=== PATIENT | female | born 1985 | race African-American/Black ===

== ENCOUNTER 2018-03-16 01:46 | Emergency (ER) | payer MEDICAID ==
[~2018-03-16] VITALS: Ht 170.2 cm; Wt 69.0 kg
[~2018-03-16 01:46] MED LIST: PREN-88 PO
[2018-03-16 06:14] LABS: BASOPHILS % 0.8 % (0.0-2.0); EOSINOPHILS % 1.6 % (0.0-5.0); HEMOGLOBIN. 13.5 g/dL (12.0-16.0); MEAN CORPUSCULAR HEMOGLOBIN 30.6 pg (28.0-32.0); MEAN CORPUSCULAR VOLUME 90.7 fL (81.0-99.0); MEAN PLATELET VOLUME 8.4 fl (7.4-10.4); MONOCYTES % 7.5 % (2.0-8.0); NEUTROPHILS % 30.1 % (40.0-76.0); PLATELET 206 x1000/uL (130-400); RED BLOOD CELL COUNT 4.41 mill/uL (4.2-5.4); RED CELL DISTRIBUTION WIDTH 13.3 % (11.6-14.6)
[2018-03-16 06:19] LABS: CHLORIDE 109 mEq/L (98-107); INR 1.1
[2018-03-16 06:23] LABS: HCG SCREEN NEGATIVE
[2018-03-16 07:25] LABS: CLARITY URINE CLEAR (CLEAR); COLOR URINE YELLOW (YELLOW); KETONES URINE NEGATIVE (NEGATIVE); LEUKOCYTE ESTERASE URINE 1+ (NEGATIVE); NITRITE URINE NEGATIVE (NEGATIVE); OCCULT BLOOD URINE TRACE (NEGATIVE); PROTEIN URINE NEGATIVE (NEGATIVE); SPECIFIC GRAVITY URINE 1.012 (1.005-1.030); UROBILINOGEN URINE 0.2 E.U./dL (0.2-1.0)
[2018-03-16] MEDS ORDERED: IBUPROFEN 600MG TABLET PO ONE (08:00)
[2018-03-16 09:02] VITALS: BP 102/67
== END 2018-03-16 09:07 | disposition home or self-care (01) ==
LOC: ER 01:49
DX: N39.0 Urinary tract infection, site not specified (principal); R10.2 Pelvic and perineal pain; F12.10 Cannabis abuse, uncomplicated; F15.10 Other stimulant abuse, uncomplicated
CPT/HCPCS: 36415; 80053; 81003; 83690; 84703; 85025; 85610; 99284; Z7610

== ENCOUNTER 2019-12-24 19:01 | Emergency (ER) | payer MEDICAID ==
[~2019-12-24] VITALS: Ht 170.2 cm; Wt 75.0 kg
[2019-12-24] MEDS ORDERED: MORPHINE SULFATE 4 MG/ML CPJ (NOT FOR IM USE) IV ONE (21:00)
[2019-12-24] MEDS ORDERED: DEXAMETHASONE 4MG TABLET PO ONE (21:00)
[2019-12-24 21:51] LABS: CLARITY URINE CLOUDY (CLEAR); COLOR URINE YELLOW (YELLOW); KETONES URINE 3+ (NEGATIVE); LEUKOCYTE ESTERASE URINE TRACE (NEGATIVE); NITRITE URINE NEGATIVE (NEGATIVE); OCCULT BLOOD URINE NEGATIVE (NEGATIVE); PROTEIN URINE 1+ (NEGATIVE); SPECIFIC GRAVITY URINE 1.018 (1.005-1.030); UROBILINOGEN URINE 0.2 E.U./dL (0.2-1.0)
[2019-12-24] MEDS ORDERED: KETOROLAC 30MG/ML VIAL IV ONE (23:15)
[2019-12-25 01:15] VITALS: BP 122/70
== END 2019-12-25 01:56 | disposition home or self-care (01) ==
LOC: ER 19:01
DX: J02.9 Acute pharyngitis, unspecified (principal); F12.10 Cannabis abuse, uncomplicated; F15.10 Other stimulant abuse, uncomplicated
CPT/HCPCS: 81003; 81025; 96374; 96375; 99283; J1885; J2270; J8540